=== PATIENT | female | born 1990 | race Caucasian/White ===

== ENCOUNTER → 2019-03-18 | Outpatient (REF) | payer OTHER ==
[~2019-03-18] MED LIST: MAPA500T2 PO; PERC5TAB12 PO; PERCOCET PO; SYNT100T PO; VITAPRTA PO; no historial meds
== END ==
LOC: M LAB REF 12:05
PROVIDERS: ATTEND Physician Assistant
DX: R30.0 Dysuria (principal)

== ENCOUNTER 2019-05-10 19:07 | Emergency (ER) | payer OTHER ==
[~2019-05-10] VITALS: Ht 167.6 cm; Wt 105.5 kg
[2019-05-10] MEDS ORDERED: ACETAMINOPHEN 325 MG TAB PO ONE (20:15)
[2019-05-10 20:55] LABS: BASO % 0.2 % (0.0-1.0); EOS # 0.1 10^3/uL (0.0-0.50); EOS % 1.1 % (0.0-3.0); LYMPH # 1.7 10^3/uL (1.5-6.5); LYMPH % 19.9 % (24.0-44.0); MEAN CORPUSCULAR HEMOGLOBIN 31.3 pg (27.0-33.0); MEAN CORPUSCULAR HGB CONC 33.3 g/dl (32.0-36.5); MONO # 0.8 10^3/uL (0.0-0.8); NEUTROPHILS # 5.9 10^3/uL (1.8-7.7); NEUTROPHILS % 69.6 % (36.0-66.0); PLATELET COUNT, AUTOMATED 291 10^3/uL (150-450); RED BLOOD COUNT 4.47 10^6/uL (4.00-5.40); WHITE BLOOD COUNT 8.4 10^3/uL (4.0-10.0)
[2019-05-10] MEDS: NS 1,000 ML IV ONE ×2 (21:04→21:05)
[2019-05-10] MEDS: IPRATROPIUM 0.5MG/ALBUTEROL 2.5MG INH SOL UD 3ML (DUONEB)(J7620) NEB PRN ×3 (21:05→21:46)
[2019-05-10 21:13] LABS: BLOOD UREA NITROGEN 13 MG/DL (7-18); CALCIUM LEVEL 8.5 MG/DL (8.5-10.1); CARBON DIOXIDE LEVEL 22 MEQ/L (21-32); CHLORIDE LEVEL 110 MEQ/L (98-107); CREATININE FOR GFR 0.89 MG/DL (0.55-1.30); GLOMERULAR FILTRATION RATE > 60.0 (>60); GLUCOSE, FASTING 87 MG/DL (70-100); POTASSIUM SERUM 3.8 MEQ/L (3.5-5.1); SODIUM LEVEL 140 MEQ/L (136-145)
[2019-05-10] MEDS ORDERED: GUAI1SOL7 PO (22:37)
[2019-05-10] MEDS ORDERED: PRED20TA PO (22:37)
[2019-05-10] MEDS ORDERED: DOXY100C37 PO (22:37)
[2019-05-10] MEDS ORDERED: PROAAER10 INH (22:37)
[2019-05-10] MEDS ORDERED: DOXYCYCLINE HYCLATE 100 MG TAB PO ONE (22:45)
[2019-05-10] MEDS ORDERED: methylPREDNISolone INJ 125 MG/2 ML VIAL (J2930) IV ONE (22:45)
[2019-05-10] MEDS ORDERED: ALBUTEROL 90 MCG/ACT 8GM HFA INHALER INH ONE (22:45)
[2019-05-10 22:46] VITALS: BP 133/80
--- NOTE | 2019-05-11 07:49 | REP ---
PA and lateral chest: Comparison is the chest CT dated one 08/31/2015. There is a right upper lobe infiltrate extending to the right hilus. The lung mars otherwise clear. No pleural effusions. Cardiac size is normal. The left hilus, mediastinum, skeletal structures are unremarkable. Impression: Right upper lobe infiltrate as described. Electronically Signed by Chuck Degroot MD 05/11/2019 07:40 A
== END 2019-05-10 23:12 | disposition home or self-care (01) ==
LOC: M ED 19:07
DX: J18.9 Pneumonia, unspecified organism (principal); R06.02 Shortness of breath; J45.909 Unspecified asthma, uncomplicated; E03.9 Hypothyroidism, unspecified; Z88.6 Allergy status to analgesic agent
CPT/HCPCS: 71046; 80048; 84702; 85025; 85379; 94640; 94760; 96374; 99284; J2930